=== PATIENT | female | born 1990 | race African-American/Black ===

== ENCOUNTER 2019-09-18 11:34 | Emergency (ER) | payer OTHER ==
[2019-09-18 11:49] VITALS: BP 111/74; PULSE 94; TEMP 97.9; BMI 30.1
[2019-09-18] MEDS ORDERED: TETRACAINE 0.5% OPHTH SOLN 2 ML BOTTLE OS ONE (12:17)
[2019-09-18] MEDS ORDERED: FLUORESCEIN NA 1 EA STRIP OS ONE (12:17)
[2019-09-18] MEDS ORDERED: FLUORESCEIN NA 1 EA STRIP ONE (12:18)
[2019-09-18] MEDS ORDERED: TETRACAINE 0.5% OPHTH SOLN 2 ML BOTTLE ONE (12:18)
[2019-09-18] MEDS ORDERED: DIPHTH,PERTUSS(ACELL),TET 0.5 ML DISP.SYRIN IM ONE (12:19)
[2019-09-18] MEDS: DIPHTH,PERTUSS(ACELL),TET 0.5 ML DISP.SYRIN IM ONE ×2 (12:20→12:25)
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
[2019-09-18] MEDS ORDERED: ERYTHROMYCIN 0.5% OPHTHALMIC OINTMENT 3.5 GM TUBE OS ONE (12:37)
[2019-09-18] MEDS ORDERED: ERYTHROMYCIN 0.5% OPHTHALMIC OINTMENT 3.5 GM TUBE ONE (12:43)
== END 2019-09-18 12:47 | disposition home or self-care (01) ==
LOC: JERFT 11:34
DX: S05.92XA Unspecified injury of left eye and orbit, initial encounter (principal)
CPT/HCPCS: 90715; 99283-25